=== PATIENT | female | born 1970 | race Caucasian/White ===

== ENCOUNTER → 2021-04-29 | Outpatient (CLI) | payer BC ==
--- NOTE | 2021-04-29 17:16 | US ---
EXAMINATION TYPE: US thyroid st tissue head/neck DATE OF EXAM: 04/29/2021 COMPARISON: NONE CLINICAL HISTORY: 50-year-old female E04.9 goiter. Enlarged neck on physical exam. TECHNIQUE: Multiple sonographic images of the thyroid gland are obtained. FINDINGS: GLAND SIZE: Right Lobe: 3.6 x 1.5 x1.1 cm Overall Parenchyma: homogenous Left Lobe: 3.5 x 1.4 x 1.1 cm Overall Parenchyma: homogeneous Isthmus Thickness: 0.2 cm NODULES RIGHT: # of nodules measured on right: 0 LEFT: # of nodules measured on left: 0 ISTHMUS: # of nodules measured in the isthmus: 1 1. 0.4 X 0.4 x 0.3 cm benign cyst in the left isthmus No mass or fluid collection seen on right side of neck. Lymph node noted on left side of neck measuri ng 1.2 x 0.6 x 0.5 cm. IMPRESSION: 1. Normal-sized thyroid gland. There is only a solitary benign 4 mm cyst within the left isthmus. 2. A prominent but nonenlarged 1.2 x 0.6 cm lymph node along the left side of the neck (6 mm short ax is).
== END | disposition home or self-care (01) ==
LOC: RADUSWWP 15:46
PROVIDERS: ATTEND Family Medicine
DX: E04.1 Nontoxic single thyroid nodule (principal)
CPT/HCPCS: 76536

== ENCOUNTER → 2022-09-10 | Outpatient (CLI) | payer BC ==
--- NOTE | 2022-09-10 15:28 | MM ---
Reason for Exam: Clinical finding. Indicated Problems: Pain of the right side (Focal) for 1 Month(s) : 12-1 oclock. Patient History: Menarche at age 10. First Full-Term at age 18. Hysterectomy at age 27. Postmenopausal. Risk Values: Susan 5 year model risk: 1.0%. NCI Lifetime model risk: 7.7%. Tissue Density: Right: The breast tissue is heterogeneously dense. This may lower the sensitivity of mammography. Findings: Analyzed By CAD. There are a few scattered tiny benign-appearing punctate calcifications in the right breast redemonstrated. Painful area marked in the right breast upper aspect. Possible enlarging oval mass just posterior to this overlying portion of the right pectoralis muscle near MLO slice 56 is present. This is also seen on true lateral image 18. Overall Assessment: Incomplete: need additional imaging evaluation, BI-RAD 0 Management: Diagnostic Breast Ultrasound of the right breast. Targeted ultrasound. Electronically signed and approved by: Meliton Dover DO
--- NOTE | 2022-09-10 15:31 | USB ---
Reason for Exam: Clinical finding. Patient History: Menarche at age 10. First Full-Term at age 18. Hysterectomy at age 27. Postmenopausal. Risk Values: Susan 5 year model risk: 1.0%. NCI Lifetime model risk: 7.7%. Findings: The whole breast of the right breast, the axilla of the right breast and the retroareolar of the right breast were scanned. Targeted ultrasound right breast shows irregular hypoechoic mass that has some angular margins and has not parallel orientation at 12:00 position 10 cm distance from nipple measuring 1.3 x 1.2 x 1.2 cm with some adjacent vascularity and no posterior features. Scan of axilla shows no suspicious adenopathy. Overall Assessment: Suspicious, BI-RAD 4 Management: Ultrasound Core Biopsy of the right breast. Targeted ultrasound core biopsy. Results were given to the patient verbally at the time of exam. Electronically signed and approved by: Meliton Dover DO
== END | disposition home or self-care (01) ==
LOC: RADMAMWWP 13:30
PROVIDERS: ATTEND Family Medicine
DX: N64.4 Mastodynia (principal); R92.2 Inconclusive mammogram; Z78.0 Asymptomatic menopausal state
CPT/HCPCS: 77061; 77065

== ENCOUNTER → 2022-09-29 | Day surgery (SDC) | payer BC | LOC: RADUSWWP 12:48 | PROVIDERS: ATTEND Surgery | DX: C50.911 Malignant neoplasm of unspecified site of right female breast (principal) | CPT/HCPCS: 88305; 88342; 88341; 77065; 19083; 19084; A4648 ==

== ENCOUNTER 2022-12-07 08:24 | Observation (INO) | payer BC ==
[~2022-12-07 08:24] MED LIST: ACETAMINOPHEN TAB 500 MG TAB PO PRN; HEPARIN SODIUM,PORCINE/PF 5,000 UNIT/0.5 ML SYRINGE SQ PRN; Pre Op ABX Message 1 EACH MISC MISCELLANE ONE
--- NOTE | 2022-12-07 08:43 | P.GSHP ---
History of Present Illness H&P Date: 12/07/22 Chief Complaint: Right breast cancer 52-year-old female seen in the office in September. Please refer to that history and physical for additional details. The patient felt a lump upper medial aspect right breast in July. Diagnostic mammogram and ultrasound was then performed. She was found to have a 1.5 cm invasive lobular carcinoma ER/NV positive, HER-2/bita negative. Subsequent MRI showed what appeared to represent multifocal disease. Patient was seen by oncology. Genetic testing was performed given a prominent family history. Past Medical History Past Medical History: Cancer, GERD/Reflux Additional Past Medical History / Comment(s): Current right breast cancer. History of Any Multi-Drug Resistant Organisms: None Reported Past Surgical History: Breast Surgery, Section, Cholecystectomy Additional Past Surgical History / Comment(s): Cyst from thumb and finger removed, section X4, partial hysterectomy, right breast biopsy. Past Anesthesia/Blood Transfusion Reactions: No Reported Reaction Past Psychological History: Depression Smoking Status: Never smoker Past Alcohol Use History: Occasional Past Drug Use History: Marijuana Additional Drug Use History / Comment(s): Marijuana use on occassion, aware no use 24 hrs prior to procedure. - Past Family History Mother Family Medical History: Cancer Additional Family Medical History / Comment(s): Breast and stomach cancer. Medications and Allergies Home Medications Medication Instructions Recorded Confirmed Type Cetirizine HCl/Pseudoephedrine 1 tab PO DAILY 12/02/22 12/02/22 History [Zyrtec-D ER 5 mg-120 mg Tablet] Escitalopram Oxalate [Lexapro] 20 mg PO QAM 12/02/22 12/02/22 History Ibuprofen [Motrin Ib] 400 - 600 mg PO Q8H PRN 12/02/22 12/02/22 History Allergies Allergy/AdvReac Type Severity Reaction Status Date / Time No Known Allergies Allergy Verified 12/02/22 15:24 Surgical - Exam Physical exam: General: Well-developed, well-nourished HEENT: Normocephalic, sclerae nonicteric Right breast: 1.5 cm mass 1 to 2:00, no adenopathy, no dimpling, no nipple inversion Left breast: No masses, no adenopathy Abdomen: Nontender, nondistended Extremities: No edema Neuro: Alert and oriented Assessment and Plan (1) Breast cancer, right Narrative/Plan: 52-year-old female with right breast cancer. MRI performed and is suggesting multifocal disease. Patient is interested in mastectomy with reconstruction. She was seen by plastic surgery. We'll proceed with bilateral skin sparing mastectomy with right axillary sentinel lymph node injection and biopsy. Patient will have reconstruction by plastic surgery simultaneously. Risks of bleeding, infection, scarring, numbness, wound formation, recurrence, possible need for adjuvant radiation or additional surgeries. She understands and wishes to proceed. Current Visit: Yes Status: Acute Code(s): C50.911 - MALIGNANT NEOPLASM OF UNSP SITE OF RIGHT FEMALE BREAST SNOMED Code(s): 001990668
--- NOTE | 2022-12-07 08:44 | P.NAPBC ---
NAPBC Queries - NAPBC Queries Was patient's case review presented at [facility] tumor board? If no, comment.: Yes Was patient's pathology reviewed at [facility]? If no, comment.: Yes Was breast conservation surgery offered? If no, comment.: Yes Was sentinel node biopsy offered? If no, comment.: Yes Was diagnosis confirmed by percutaneous core biopsy? If no, comment.: Yes Is patient mastectomy patient?: Yes Was a preop referral to reconstructive surgeon offered?: Yes Clinical Stage: 1
[2022-12-07] MEDS: LACTATED RINGERS 1,000 ML IV SCH (09:01)
[2022-12-07] MEDS ORDERED: ONDANSETRON 4 MG/2 ML VIAL ONE ×2 (09:05→10:38)
[2022-12-07] MEDS ORDERED: DEXAMETHASONE SOD PHOSPHATE 4 MG/ML 1 ML VIAL IVP ONE (09:12)
[2022-12-07] MEDS ORDERED: MIDAZOLAM 2 MG/2 ML VIAL IVP ONE (10:21)
[2022-12-07] MEDS ORDERED: fentaNYL (PF) 50 MCG/ML 2 ML AMP ONE (10:38)
[2022-12-07] MEDS ORDERED: MIDAZOLAM 2 MG/2 ML VIAL ONE (10:38)
[2022-12-07] MEDS ORDERED: LIDOCAINE 4% LTA KIT (4 ML) TOPICAL ONE (10:38)
[2022-12-07] MEDS ORDERED: SUCCINYLCHOLINE CHLORIDE 200 MG/10 ML VIAL IV ONE (10:38)
[2022-12-07] MEDS ORDERED: PROPOFOL 10 MG/ML 20 ML VIAL IV ONE (10:38)
[2022-12-07] MEDS ORDERED: LIDOCAINE 2% INJ 20 MG/ML (2 ML VIAL) ONE (10:38)
[2022-12-07] MEDS ORDERED: KETAMINE 10 MG/ML 20 ML VIAL ONE (10:38)
[2022-12-07] MEDS ORDERED: METOPROLOL TARTRATE 5 MG/5 ML VIAL IVP ONE (10:38)
[2022-12-07] MEDS ORDERED: ROCURONIUM 10 MG/ML (5 ML VIAL) IV ONE (10:38)
[2022-12-07] MEDS ORDERED: HYDROmorphone (PF) 1 MG/ML ONE (10:38)
[2022-12-07] MEDS ORDERED: SODIUM CHLORIDE 0.9% 50 ML with ceFAZolin 2,000 MG IV ONE ×2 (10:43)
--- NOTE | 2022-12-07 10:47 | NM ---
EXAMINATION TYPE: NM sentinel node injection DATE OF EXAM: 12/07/2022 COMPARISON: NONE CLINICAL INDICATION: Female, 52 years old with history of C50.911 RIGHT BREAST CANCER; TECHNIQUE AND FINDINGS: The procedure of sentinel lymph node injection was explained to the patient. The benefits, alternatives, and risks were discussed. An informed consent was then obtained. Overlying skin is cleaned with sterile alcohol. Following this, 518 uCi Tc99m Tilmanocept was inject ed in the upper outer aspect of the right nipple intradermally. The patient tolerated the procedure well without any immediate complication. The patient was kept in the radiology department for short stay after the procedure and then taken to surgery for surgical p rocedure what is presumed intraoperative gamma probe will be used for sentinel lymph node detection. IMPRESSION: Right breast radiotracer injection for sentinel node localization as above.
[2022-12-07] MEDS ORDERED: ceFAZolin 1,000 MG VIAL ONE (11:05)
[2022-12-07] MEDS ORDERED: SODIUM CHLORIDE 0.9% 100 ML BAG ONE (11:05)
[2022-12-07] MEDS ORDERED: METHYLENE BLUE 50 MG/10 ML AMPUL INJ ONE ×2 (11:21)
[2022-12-07] MEDS ORDERED: LACTATED RINGERS 1,000 ML IV ONE (13:12)
[2022-12-07] MEDS ORDERED: NALOXONE 0.4 MG/ML 1 ML VIAL IV PRN (13:49)
[2022-12-07] MEDS ORDERED: traMADol 50 MG TAB PO PRN (13:49)
[2022-12-07] MEDS ORDERED: ACETAMINOPHEN TAB 325 MG TAB PO PRN (13:49)
[2022-12-07] MEDS ORDERED: ACETAMINOPHEN IV (For NPO) 1,000 MG in EMPTY BAG 1 BAG IVPB ONE (13:49)
--- NOTE | 2022-12-07 13:56 | P.OP ---
Date of Procedure: 12/07/22 Procedure(s) Performed: PREOPERATIVE DIAGNOSIS: Right breast cancer POSTOPERATIVE DIAGNOSIS: Same PROCEDURE: Bilateral simple mastectomy with sentinel lymph node biopsy right breast with concurrent reconstruction SURGEON: Renee EBL: Minimal ANESTHESIA: General COMPLICATIONS: None OPERATIVE PROCEDURE: Patient was placed on the operating room table in the supine position. 2 mL of methylene blue was injected into the right subareolar space. The breast was then massaged for 5 minutes. The upper torso anteriorly was prepped and draped in usual sterile fashion. The left side was first addressed. A skin marker was used to draw out a circular incision around the areola. This incision was then made using the scalpel. Dissection through the subcutaneous tissues took place using electrocautery down to the chest wall circumferentially. The breast was removed from the chest wall at that time. The Ligaclip or LigaSure was used for small visible vessels. No bleeding was encountered. Dr. Mesa from plastic surgery then took over on the left chest wall to begin his reconstruction with tissue expanders. The right side was then addressed. A small curvilinear incision in the right axilla took place over the hot spot identified by neoprobe. The subcutaneous tissues were divided using electrocautery and blunt dissection. A total of 6 hot lymph nodes were identified and removed. 2 of these were blue in color. No residual radioactivity within the axilla was noted at that time. These lymph nodes had a benign appearance clinically. No frozen section took place. In a similar fashion the skin marker was used to draw out the proposed incision around the areola. The incision was made using a scalpel. The skin hooks were utilized and the flaps were raised circumferentially using electrocautery down to the chest wall. The breast was again removed from the chest wall using electrocau palmira. Small vessels were ligated using the clip brine tank separator operator. No bleeding was seen. The right chest wall was then again handed off to Dr. Mesa for formal closure and tissue cigarette making machine hopper feeder placement. At that point I exited the room. The family was informed of the progress of surgery. DISPOSITION: Patient to remain in the operating for completion and closure by Dr. Mesa.
[2022-12-07] MEDS ORDERED: BACITRACIN ZINC 500 UNIT/GM OINT 28.4 GM TUBE TOPICAL ONE (14:30)
[2022-12-07] MEDS ORDERED: HYDROmorphone 0.5 MG/0.5 ML SYRINGE IVP ONE (14:57)
[2022-12-07] MEDS: D5-0.45% NACL WITH KCL 20MEQ/L 1,000 ML IV SCH (16:15)
[2022-12-07] MEDS: HEPARIN SODIUM,PORCINE/PF 5,000 UNIT/0.5 ML SYRINGE SQ SCH (17:43)
[2022-12-07] MEDS: HYDROmorphone 0.5 MG/0.5 ML SYRINGE IVP PRN (19:31)
[2022-12-07] MEDS: DOCUSATE 100 MG CAP PO SCH (20:59)
[2022-12-07] MEDS: FAMOTIDINE 20 MG TAB PO SCH (20:59)
--- NOTE | 2022-12-07 21:27 | OP ---
OPERATIVE REPORT DATE OF SERVICE : 12/07/2022 PREOPERATIVE DIAGNOSES: 1. Acquired loss, right and left breast. 2. Breast cancer, right breast. POSTOPERATIVE DIAGNOSES: 1. Acquired loss, right and left breast. 2. Breast cancer, right breast. OPERATIVE PROCEDURES: 1. Immediate reconstruction, left breast, following mastectomy with insertion of tissue brewery pumper, subsequent outpatient expansion. 2. Immediate reconstruction, right breast, following mastectomy with insertion of tissue brewery pumper, subsequent outpatient expansion. 3. Implantation of reconstructive graft for right and left breast reconstruction. OPERATIVE INDICATIONS: The patient is a 52-year-old female, who is to undergo nipple sparing mastectomies of the right and left breast with right axillary lymph node excision for treatment of breast cancer of the right breast. She has elected to proceed with immediate breast reconstruction via tissue brewery pumper technique, is aware of potential risks and complications associated with the procedure including, but not limited to seroma, hematoma, wound healing problems, infection, among others. She has requested I perform the surgery. OPERATIVE PROCEDURE SUMMARY: The patient was seen in the preoperative area, markings made. Procedure reviewed. All questions answered. She was transported to the operative room, where she was placed in supine position. Following induction of general anesthesia, the patient was prepped and draped in usual fashion. Dr. Duran and his team then proceeded with the left-sided nipple sparing mastectomy through a circumareolar approach. Once that procedure was complete, I entered the room and initiated left breast reconstruction with Dr. Duran. I proceeded with right sentinel lymph node excision and right-sided mastectomy procedures. The mastectomy wound on the left was opened. No active bleeding. The wound was irrigated. Hemostasis was optimal. Additional dissection was required for optimal positioning of the tissue brewery pumper for breast reconstruction and was completed with cautery elevating additional areas of the skin, subcutaneous tissue flaps where necessary. The cavity was sized. Interpreter And Translator now opened on the field. Ultimately, 2 expanders were opened today, both of the same size from the [employer] 133S tissue brewery pumper line. The model number for the device was [id number]-SR-16-T, 600 mL volume. The left-sided device serial number was [id number] and later when opened, the right-sided serial number was [id number]. The device was only handled by surgeon. It was irrigated with saline. All air extracted and initially 400 mL air placed in the device. The device was placed into the left breast reconstructive cavity for test fitting, but the volume was too great. 100 mL of air was ultimately removed and this appeared to be an optimal fit allowing for wound closure with no tension. The device was removed, re- irrigated. AlloDerm Select tissue graft measuring 327 square cm fenestrated was opened onto the field. The AlloDerm Select restore product was irrigated several times with saline, pre-stretched and then used to cover all anterior surfaces of the tissue brewery pumper securing to 6 suture tabs with 2-0 Vicryl sutures. The brewery pumper covered with graft was covered with moist laparotomy pad to protect the graft with moisture and placed in a sterile bowl. The right-sided tissue brewery pumper was opened on the field as the patient's breasts were quite similar in sizes. Again the expanders were only handled by surgeon. All air extracted and 300 mL of air instilled. A second piece of AlloDerm Select restore measuring 327 square cm was opened on the field, rinsed several times with saline and then secured to the right-sided tissue brewery pumper with 2-0 Vicryl using 6 suture tab locations. Again, the graft covered expanders covered with a saline moistened laparotomy tab and placed in the sterile bowl. To distinguish the 2 expanders, the right-sided device was inked with a purple bar from the marking pen. Once the right-sided mastectomy and sentinel lymph node procedures completed, the cavity was irrigated. Hemostasis was optimal. Additional dissection was performed as was done on the left with cautery, elevated skin and subcutaneous tissue to create optimal positioning for the brewery pumper. The cavities were symmetrical. They were both irrigated. Hemostasis optimal. The tissue graft, tissue expanders were now placed in a prepectoral position and once operating position secured to the chest wall using 2-0 Vicryl suture and the 6 suture tab locations. With this complete, 19 round Nadeem channel drains were opened on the field and inserted into the reconstructive cavity on the right and left side, brought through separate stab incisions in the right anterior lateral chest wall. The drains were sutured in place with 2-0 Prolene. The incisions were now closed in circles using a deep dermal 2-0 Prolene pursestring suture followed by finer approximation of the dermis were possible using inverted interrupted 4-0 Monocryl and then completing superficial dermal epidermal closure with sergio. This was completed on each side in this fashion. Drains connected to the suction bulbs and were patent. Surgical edmond cleansed with saline and dried. Postoperative bandages placed using bacitracin ointment, Kerlix squares, drain sponges, all secured with 3M Medipore tape. The patient's right axillary incision was covered with Kerlix squares secured with Medipore tape as well. The patient was then awakened from her anesthetic, extubated, and transferred to the recovery room in good condition with stable vital signs. Estimated blood loss for this portion of the procedure was 50 mL. There were no complications. MMODL / IJN: [id number] /
[2022-12-07] MEDS: ONDANSETRON 4 MG/2 ML VIAL IVP PRN (21:41)
[2022-12-08] MEDS: HYDROmorphone 0.5 MG/0.5 ML SYRINGE IVP PRN ×2 (00:47→04:53)
[2022-12-08] MEDS: HEPARIN SODIUM,PORCINE/PF 5,000 UNIT/0.5 ML SYRINGE SQ SCH ×3 (02:21→18:09)
[2022-12-08] MEDS: D5-0.45% NACL WITH KCL 20MEQ/L 1,000 ML IV SCH ×2 (03:45→18:09)
[2022-12-08] MEDS: LACTATED RINGERS 1,000 ML IV SCH (06:16)
[2022-12-08] MEDS: DOCUSATE 100 MG CAP PO SCH ×2 (08:53→19:49)
[2022-12-08] MEDS: FAMOTIDINE 20 MG TAB PO SCH ×2 (08:53→19:49)
[2022-12-08] MEDS: HYDROmorphone 1 MG/ML 1 ML SYRINGE IVP PRN (08:53)
--- NOTE | 2022-12-08 10:44 | P.CONS ---
History of Present Illness - Reason for Consult Postoperative complication management - History of Present Illness Patient is a pleasant 53-year-old female admitted for bilateral simple mastectomy with some central or in for right breast cancer. Patient underwent this surgery followed by reconstructive surgery. Patient is clinically doing well patient is having some pain in the breast area surgical site areas pain is well-controlled on present medication regimen. Patient was complaining of some lightheadedness posterior opiate use for pain. REVIEW OF SYSTEMS: CONSTITUTIONAL: No fever, no malaise, no fatigue. HEENT: No recent visual problems or hearing problems. Denied any sore throat. CARDIOVASCULAR: No chest pain, orthopnea, PND, no palpitations, no syncope. PULMONARY: No shortness of breath, no cough, no hemoptysis. GASTROINTESTINAL: No diarrhea, no nausea, no vomiting, no abdominal pain. NEUROLOGICAL: No headaches, no weakness, no numbness. HEMATOLOGICAL: Denies any bleeding or petechiae. GENITOURINARY: Denies any burning micturition, frequency, or urgency. MUSCULOSKELETAL/RHEUMATOLOGICAL: Denies any joint pain, swelling, or any muscle pain. ENDOCRINE: Denies any polyuria or polydipsia. The rest of the 14-point review of systems is negative. PHYSICAL EXAMINATION: GENERAL: The patient is alert and oriented x3, not in any acute distress. Well developed, well nourished. HEENT: Pupils are round and equally reacting to light. EOMI. No scleral icterus. No conjunctival pallor. Normocephalic, atraumatic. No pharyngeal erythema. No thyromegaly. CARDIOVASCULAR: S1 and S2 present. No murmurs, rubs, or gallops. PULMONARY: Chest is clear to auscultation, no wheezing or crackles. ABDOMEN: Soft, nontender, nondistended, normoactive bowel sounds. No palpable organomegaly. MUSCULOSKELETAL: No joint swelling or deformity. EXTREMITIES: No cyanosis, clubbing, or pedal edema. NEUROLOGICAL: Gross neurological examination did not reveal any focal deficits. SKIN: No rashes. Assessment and plan -Bilateral mastectomy with reconstructive surgery patient pain is fairly well controlled continue with present regimen will also start her on some Toradol for pain. -Right breast cancer status post mastectomy with lymph node biopsy -Depression patient will be resumed on SSRI -Gastric esophageal reflux disease: Pepcid DVT prophylaxis: As per primary service Past Medical History Past Medical History: Cancer, GERD/Reflux Additional Past Medical History / Comment(s): Current right breast cancer. History of Any Multi-Drug Resistant Organisms: None Reported Past Surgical History: Breast Surgery, Section, Cholecystectomy Additional Past Surgical History / Comment(s): Cyst from thumb and finger removed, section X4, partial hysterectomy, right breast biopsy. Past Anesthesia/Blood Transfusion Reactions: No Reported Reaction Past Psychological History: Depression Smoking Status: Never smoker Past Alcohol Use History: Occasional Past Drug Use History: Marijuana Additional Drug Use History / Comment(s): Marijuana use on occassion, aware no use 24 hrs prior to procedure. - Past Family History Mother Family Medical History: Cancer Additional Family Medical History / Comment(s): Breast and stomach cancer. Medications and Allergies Home Medications Medication Instructions Recorded Confirmed Type Cetirizine HCl/Pseudoephedrine 1 tab PO DAILY 12/02/22 12/07/22 History [Zyrtec-D ER 5 mg-120 mg Tablet] Escitalopram Oxalate [Lexapro] 20 mg PO QAM 12/02/22 12/07/22 History Ibuprofen [Motrin Ib] 400 - 600 mg PO Q8H PRN 12/02/22 12/07/22 History Allergies Allergy/AdvReac Type Severity Reaction Status Date / Time No Known Allergies Allergy Verified 12/07/22 08:49 Physical Exam Vitals: Vital Signs Temp Pulse Resp BP Pulse Ox 12/08/22 08:00 97.9 F 68 18 149/72 97 12/08/22 02:46 98.4 F 58 L 16 145/77 95 12/07/22 21:23 97.7 F 54 L 16 145/82 93 L 12/07/22 20:03 97.1 F L 55 L 16 148/84 99 12/07/22 16:15 58 L 18 12/07/22 15:45 97.6 F 61 18 177/83 98 12/07/22 15:15 65 17 1456/80 95 12/07/22 15:00 74 15 150/83 97 12/07/22 14:45 80 16 172/97 97 12/07/22 14:30 79 17 179/85 100 12/07/22 14:15 97.5 F L 77 18 168/82 99 Intake and Output 12/07/22 12/08/22 12/08/22 22:59 06:59 14:59 Intake Total 535 1850 Output Total 130 70 Balance 405 1780 Intake: IV 175 900 ACETAMINOPHEN IV (For NPO 100 ) 1,000 mg In Empty Bag 1 bag @ 400 mls/hr IVPB ONCE ONE Rx#:[id number] D5-0.45% NaCl with KCl 75 900 20Meq/l 1,000 ml @ 75 mls /hr IV .[id number] ROS Rx#: [id number] Oral 360 950 Output: Drainage 130 70 Left Breast 65 30 Right Breast 65 40 Other: Voiding Method Toilet # Voids 1 Weight 69.2 kg
[2022-12-08] MEDS: ESCITALOPRAM 20 MG TAB PO SCH (11:00)
[2022-12-08] MEDS: HYDROcodone/APAP 5-325MG 1 EACH TAB PO PRN ×3 (11:02→21:03)
--- NOTE | 2022-12-08 11:47 | P.PN ---
Subjective Progress Note Date: 12/08/22 CHIEF COMPLAINT: Right breast cancer HISTORY OF PRESENT ILLNESS: Patient is postop day #1 status post Bilateral simple mastectomy with sentinel lymph node biopsy right breast with concurrent reconstruction. Patient does complain of pain. She did require Dilaudid this morning. She has been dealing with nausea. She denies any vomiting. She has been having dizziness when ambulating. Afebrile. LEA drain for left breast 30ml sanguinous output and right breast 40 mL sanguinous output PHYSICAL EXAM: VITAL SIGNS: Reviewed. GENERAL: Well-developed in no acute distress. Breast exam: Dressing is clean dry and intact. Dressing removed both breasts no significant hematoma. No significant drainage. There is mild dried blood noted at the nipples. No evidence of erythema. ABDOMEN: Soft. Nondistended. Nontender. NEUROLOGIC: Alert and oriented. Cranial nerves II through XII grossly intact. ASSESSMENT: 1. Right breast cancer status post bilateral simple mastectomy with sentinel lymph node biopsy right breast with concurrent reconstruction PLAN: -Continue pain management -Continue regular diet -Continue IV fluids -Continue supportive care Physician Surgical Processor note has been reviewed by physician. Signing provider agrees with the documented findings, assessment, and plan of care. I have personally seen and examined the patient, reviewed the MUMPS DEVELOPER /PAs history, exam and MDM and agree with the assessment and plan as written. Based on total visit time, I have performed more than 50% of the visit. As above: Patient doing well today. Minimal pain. Drain output appropriate. Incisions clean and dry. No ischemia. Continue analgesics. Anticipate discharge tomorrow. Objective - Vital Signs Vital signs: Vital Signs Temp 97.9 F 12/08/22 08:00 Pulse 68 12/08/22 08:00 Resp 18 12/08/22 08:00 BP 149/72 12/08/22 08:00 Pulse Ox 97 12/08/22 08:00 FiO2 Intake & Output 12/07/22 12/08/22 12/08/22 18:59 06:59 18:59 Intake Total 1425 2210 Output Total 365 150 Balance 1060 2060 Weight 69.2 kg Intake: IV 1425 900 ACETAMINOPHEN IV (For NPO 100 ) 1,000 mg In Empty Bag 1 bag @ 400 mls/hr IVPB ONCE ONE Rx#:[id number] D5-0.45% NaCl with KCl 75 900 20Meq/l 1,000 ml @ 75 mls /hr IV .[id number] [facility] Rx#: [id number] Oral 1310 Output: Drainage 50 150 Left Breast 30 65 Right Breast 20 85 Urine 150 Estimated Blood Loss 165 Other: Voiding Method Toilet Toilet # Voids 1 - Labs CBC & Chem 7: 12/08/22 12:03
[2022-12-08] MEDS: ONDANSETRON 4 MG/2 ML VIAL IVP PRN ×2 (12:03→19:48)
[2022-12-08 13:12] LABS: HGB 12.7 gm/dL (11.4-16.0); MCH 29.8 pg (25.0-35.0); MCHC 33.5 g/dL (31.0-37.0); MCV 88.9 fL (80.0-100.0); Mean Platelet Volume 9.1; Platelet Count 214 k/uL (150-450); RBC 4.28 m/uL (3.80-5.40); RDW 12.9 % (11.5-15.5); WBC 13.4 k/uL (3.8-10.6)
[2022-12-08] MEDS ORDERED: BACITRACIN OINT 1 EACH PACKET TOPICAL ONE (13:15)
[2022-12-08] MEDS ORDERED: FAMOTIDINE 20 MG TAB PO SCH (21:00)
[2022-12-09] MEDS: HYDROcodone/APAP 5-325MG 1 EACH TAB PO PRN ×4 (01:42→21:34)
[2022-12-09] MEDS: HEPARIN SODIUM,PORCINE/PF 5,000 UNIT/0.5 ML SYRINGE SQ SCH ×3 (01:45→17:55)
[2022-12-09] MEDS: LACTATED RINGERS 1,000 ML IV SCH (03:32)
[2022-12-09] MEDS: ONDANSETRON 4 MG/2 ML VIAL IVP PRN ×2 (06:20→21:38)
[2022-12-09] MEDS: D5-0.45% NACL WITH KCL 20MEQ/L 1,000 ML IV SCH ×3 (06:20→22:15)
[2022-12-09] MEDS: METOCLOPRAMIDE 5 MG/ML 2 ML VIAL IVP PRN (10:10)
[2022-12-09] MEDS: FAMOTIDINE 20 MG TAB PO SCH ×2 (10:11→20:48)
[2022-12-09] MEDS: ESCITALOPRAM 20 MG TAB PO SCH (10:11)
[2022-12-09] MEDS: DOCUSATE 100 MG CAP PO SCH ×2 (10:11→20:48)
[2022-12-09 10:28] LABS: Basophils % (A) 0 %; Eosinophils # (A) 0.3 k/uL (0-0.7); Eosinophils % (A) 3 %; Lymphocytes % (A) 33 %; MCH 31.1 pg (25.0-35.0); MCV 88.9 fL (80.0-100.0); Mean Platelet Volume 8.8; Monocytes # (A) 0.3 k/uL (0-1.0); Monocytes % (A) 3 %; Neutrophils # (A) 5.3 k/uL (1.3-7.7); Neutrophils % (A) 60 %; Platelet Count 205 k/uL (150-450); RBC 4.17 m/uL (3.80-5.40); RDW 12.5 % (11.5-15.5)
--- NOTE | 2022-12-09 13:03 | P.PN ---
Subjective Progress Note Date: 12/09/22 CHIEF COMPLAINT: Right breast cancer HISTORY OF PRESENT ILLNESS: Patient is postop day #2 status post Bilateral simple mastectomy with sentinel lymph node biopsy right breast with concurrent reconstruction. Patient reports that she is feeling better but still complains of pain and has required IV pain medicine. Her dizziness has improved. She still occasionally having nausea. Afebrile. LEA drains with total of 20 mL sanguinous output. PHYSICAL EXAM: VITAL SIGNS: Reviewed. GENERAL: Well-developed in no acute distress. Breast exam: Dressing is clean dry and intact. No evidence of any hematomas. Right breast 7 o'clock position skin is slightly small darkened area at incision site at nipple area . Mild dried blood noted at incision area. Left breast small dried blood clot noted at nipple area. ABDOMEN: Soft. Nondistended. Nontender. NEUROLOGIC: Alert and oriented. Cranial nerves II through XII grossly intact. ASSESSMENT: 1. Right breast cancer status post bilateral simple mastectomy with sentinel lymph node biopsy right breast with concurrent reconstruction PLAN: -Continue pain management -Add [place] -Continue regular diet -Continue supportive care -Anticipate discharge possibly tomorrow Physician Green Marketing Specialist note has been reviewed by physician. Signing provider agrees with the documented findings, assessment, and plan of care. Objective - Vital Signs Vital signs: Vital Signs Temp 98.5 F 12/09/22 07:37 Pulse 65 12/09/22 07:37 Resp 18 12/09/22 07:37 BP 143/68 12/09/22 07:37 Pulse Ox 97 12/09/22 07:37 FiO2 Intake & Output 12/08/22 12/09/22 12/09/22 18:59 06:59 18:59 Intake Total 900 950 Output Total 140 20 Balance 760 930 Intake: IV 900 D5-0.45% NaCl with KCl 900 20Meq/l 1,000 ml @ 75 mls /hr IV .[id number] ROS Rx#: [id number] Oral 950 Output: Drainage 140 20 Left Breast 65 10 Right Breast 75 10 Other: # Voids 1 - Labs CBC & Chem 7: 12/09/22 10:13 Labs: Abnormal Lab Results - Last 24 Hours (Table) 12/08/22 Range/Units 12:03 WBC 13.4 H (3.8-10.6) k/uL
[2022-12-09] MEDS: IBUPROFEN 600 MG TAB PO SCH ×3 (13:57→21:35)
--- NOTE | 2022-12-09 18:41 | P.PN ---
Subjective Progress Note Date: 12/09/22 - Reason for Consult Postoperative management status post bilateral simple mastectomy - History of Present Illness Patient is a pleasant 53-year-old female admitted for bilateral simple mastectomy with some central or in for right breast cancer. Patient underwent this surgery followed by reconstructive surgery. Patient is clinically doing well patient is having some pain in the breast area surgical site areas pain is well-controlled on present medication regimen. Patient was complaining of some lightheadedness posterior opiate use for pain. 12/09/2022 Patient is seen and evaluated in follow-up today with no acute overnight issues noted. Patient continues to have some chest wall discomfort requiring IV pain medications. Recommend incentive spirometer and encourage the patient use at least 10 times every hour while awake. Pain management per surgery services. Patient is afebrile and did have a mildly elevated white count, most likely reactive as patient is afebrile and denies shortness of breath and is currently on room air. Patient denies any burning or pain with urination or frequency. Encouraged increase activity as tolerated and getting up and walking frequently and encouraged oral intake. A.m. labs pending at this time Review of systems: Constitutional: No reports of fatigue, fever, or chills Cardiovascular: reports of chest wall pain , denies palpitations Respiratory: No reports of shortness of breath or cough GI: reports of occasional nausea, no vomiting, or diarrhea, not much of an appetite : No reports of dysuria or retention Neurovascular: No reports of weakness or numbness All medications have been reviewed PHYSICAL EXAMINATION: GENERAL: The patient is alert and oriented x3, not in any acute distress. Well developed, well nourished. HEENT: Pupils are round and equally reacting to light. EOMI. No scleral icterus. No conjunctival pallor. Normocephalic, atraumatic. No pharyngeal erythema. No thyromegaly. CARDIOVASCULAR: S1 and S2 present. No murmurs, rubs, or gallops. PULMONARY: Chest is clear to auscultation, no wheezing or crackles. ABDOMEN: Soft, nontender, nondistended, normoactive bowel sounds. No palpable organomegaly. MUSCULOSKELETAL: No joint swelling or deformity. EXTREMITIES: No cyanosis, clubbing, or pedal edema. NEUROLOGICAL: Gross neurological examination did not reveal any focal deficits. SKIN: No rashes. Assessment: -Bilateral mastectomy with reconstructive surgery, postop day 2 -Right breast cancer status post mastectomy with lymph node biopsy -Leukocytosis, most likely reactive with no signs of infection and patient is afebrile -Depression history -Gastric esophageal reflux disease -DVT prophylaxis: As per primary service -GI prophylaxis -Full code Plan: Recommend continue current medications and management per general surgery services. Home medications have been reviewed and resumed as appropriate Patient continues with some chest wall pain requiring IV pain medications. Gay being added and recommend incentive spirometer and encourage the patient use at least 10 times every hour while awake Encouraged increased activity as tolerated with frequent walks and also encourage oral intake White blood count slightly elevated although feels is likely reactive as patient is afebrile with no reports of burning or pain or frequency with urination and denies shortness of breath. Will await repeat labs We will continue to follow with general surgery during hospitalization. Thank you kindly for this consultation. The impression and plan of care has been dictated by Sola Krishnamurthy, Nurse Practitioner as directed. Dr. Roxie MD I have performed a history and examination and MDM of this patient, discussed the same with the dictator, and agree with the dictator's assessment and plan as written ,documented as a scribe. Based on total visit time, I have performed more than 50% of the visit. Objective - Vital Signs Vital signs: Vital Signs Temp 98.5 F 12/09/22 07:37 Pulse 65 12/09/22 07:37 Resp 18 12/09/22 07:37 BP 143/68 12/09/22 07:37 Pulse Ox 97 12/09/22 07:37 FiO2 Intake & Output 12/08/22 12/09/22 12/09/22 18:59 06:59 18:59 Intake Total 900 950 Output Total 140 20 Balance 760 930 Intake: IV 900 D5-0.45% NaCl with KCl 900 20Meq/l 1,000 ml @ 75 mls /hr IV .[id number] ROS Rx#: [id number] Oral 950 Output: Drainage 140 20 Left Breast 65 10 Right Breast 75 10 Other: # Voids 1 - Labs CBC & Chem 7: 12/09/22 10:13 Labs: Abnormal Lab Results - Last 24 Hours (Table) 12/08/22 Range/Units 12:03 WBC 13.4 H (3.8-10.6) k/uL
[2022-12-10] MEDS: HEPARIN SODIUM,PORCINE/PF 5,000 UNIT/0.5 ML SYRINGE SQ SCH ×2 (03:51→09:34)
[2022-12-10] MEDS: ONDANSETRON 4 MG/2 ML VIAL IVP PRN ×2 (05:10→13:23)
[2022-12-10] MEDS: HYDROmorphone 1 MG/ML 1 ML SYRINGE IVP PRN (05:13)
[2022-12-10] MEDS: FAMOTIDINE 20 MG TAB PO SCH (08:17)
[2022-12-10] MEDS: DOCUSATE 100 MG CAP PO SCH (08:17)
[2022-12-10] MEDS: HYDROcodone/APAP 5-325MG 1 EACH TAB PO PRN ×2 (08:17→13:22)
[2022-12-10] MEDS: IBUPROFEN 600 MG TAB PO SCH ×2 (08:17→12:36)
[2022-12-10] MEDS: ESCITALOPRAM 20 MG TAB PO SCH (08:18)
[2022-12-10] MEDS: METOCLOPRAMIDE 5 MG/ML 2 ML VIAL IVP PRN (08:18)
[2022-12-10] MEDS: LACTATED RINGERS 1,000 ML IV SCH (08:27)
--- NOTE | 2022-12-10 12:21 | P.PN ---
Subjective Progress Note Date: 12/10/22 CHIEF COMPLAINT: Right breast cancer HISTORY OF PRESENT ILLNESS: Patient is postop day #3 status post Bilateral simple mastectomy with sentinel lymph node biopsy right breast with concurrent reconstruction. Patient complains of pain across the right upper breast this morning. She did require the IV Dilaudid. She also reports she's been having episodes of nausea requiring antinausea medication. No vomiting. She is able to tolerate diet but her appetite has diminished. Afebrile. LEA drains with s erosanguineous output. 50 mL output on the left drain and 30 mL output on the right PHYSICAL EXAM: VITAL SIGNS: Reviewed. GENERAL: Well-developed in no acute distress. Breast exam: Dressing is clean dry and intact. Right breast firmness at the top of the breast noted with tenderness. No discoloration. Area of the nipple incision with evidence of bruising and a small blood clot. Left breast soft small blood clot noted at nipple incision site. ABDOMEN: Soft. Nondistended. Nontender. NEUROLOGIC: Alert and oriented. Cranial nerves II through XII grossly intact. ASSESSMENT: 1. Right breast cancer status post bilateral simple mastectomy with sentinel lymph node biopsy right breast with concurrent reconstruction PLAN: -Continue pain management -Continue regular diet -Continue supportive care Physician Service Consultant note has been reviewed by physician. Signing provider agrees with the documented findings, assessment, and plan of care. I have personally seen and examined the patient, reviewed the FORMS DESIGNER /PAs history, exam and MDM and agree with the assessment and plan as written. Based on total visit time, I have performed more than 50% of the visit. As above: Patient doing well. She had a sharp pain that was short lasting earlier today. Doing better now. Tolerating diet. We'll discharge. Follow-up one week. Objective - Vital Signs Vital signs: Vital Signs Temp 98.6 F 12/10/22 07:12 Pulse 55 L 12/10/22 07:12 Resp 14 12/10/22 07:12 BP 136/69 12/10/22 07:12 Pulse Ox 99 12/10/22 07:12 FiO2 Intake & Output 12/09/22 12/10/22 12/10/22 18:59 06:59 18:59 Intake Total 900 350 Output Total 113 80 Balance 787 270 Intake: IV 900 D5-0.45% NaCl with KCl 900 20Meq/l 1,000 ml @ 75 mls /hr IV .[id number] [facility] Rx#: [id number] Oral 350 Output: Drainage 113 80 Left Breast 68 50 Right Breast 45 30 Other: Voiding Method Toilet Toilet # Voids 1 - Labs CBC & Chem 7: 12/09/22 10:13
[2022-12-10 13:09] VITALS: BP 166/84; PULSE 62; RESP 13; TEMP 98.7
--- NOTE | 2022-12-10 13:49 | P.DS ---
Providers Date of admission: 12/08/22 08:58 Expected date of discharge: 12/10/22 Attending physician: Lucho Duran Consults: 12/07/22 13:49 Consult Physician Routine Consulting Provider: Ld Ceballos Consult Reason/Comments: Medical management Do you want consulting provider notified?: Yes Primary care physician: Agnieszka Centeno Hospital Course: Discharge diagnosis 1. Right breast cancer status post bilateral simple mastectomy with sentinel lymph node biopsy right breast with concurrent reconstruction Hospital course This is a 52-year-old female with right breast cancer she is status post bilateral simple mastectomy with sentinel lymph node biopsy right breast with concurrent reconstruction. The reconstructive surgery on the right and left breast were completed by Dr. Mesa. Patient has tolerated surgery well. Her pain is controlled. She has been up and ambulating. She is tolerating diet. She is afebrile. She is stable for discharge. Please refer to chart for any further details. Physician Field Support Specialist note has been reviewed by physician. Signing provider agrees with the documented findings, assessment, and plan of care. Patient Condition at Discharge: Stable Plan - Discharge Summary Discharge Rx Participant: Yes New Discharge Prescriptions: New Ibuprofen [Motrin] 600 mg PO Q8HR PRN #30 tab PRN Reason: Pain HYDROcodone/APAP 5-325MG [[place] 5-325] 1 - 2 tab PO Q6HR PRN 3 Days #25 tab PRN Reason: Pain Ondansetron Odt [Zofran Odt] 4 mg PO Q8HR PRN #21 tab PRN Reason: Nausea Continue Escitalopram Oxalate [Lexapro] 20 mg PO QAM Cetirizine HCl/Pseudoephedrine [Zyrtec-D ER 5 mg-120 mg Tablet] 1 tab PO DAILY Discontinued Ibuprofen [Motrin Ib] 400 - 600 mg PO Q8H PRN PRN Reason: Pain Discharge Medication List Cetirizine HCl/Pseudoephedrine [Zyrtec-D ER 5 mg-120 mg Tablet] 1 tab PO DAILY 12/02/22 [History] Escitalopram Oxalate [Lexapro] 20 mg PO QAM 12/02/22 [History] HYDROcodone/APAP 5-325MG [[place] 5-325] 1 - 2 tab PO Q6HR PRN 3 Days #25 tab 12/10/22 [Rx] Ibuprofen [Motrin] 600 mg PO Q8HR PRN #30 tab 12/10/22 [Rx] Ondansetron Odt [Zofran Odt] 4 mg PO Q8HR PRN #21 tab 12/10/22 [Rx] Follow up Appointment(s)/Referral(s): Agnieszka Centeno DO [Primary Care Provider] - 1-2 Days (MAKE AN APPOINTMENT KRISSY AFTER D/C) [facility], [NON-STAFF] - 1 Week Patient Instructions/Handouts: Mastectomy (DC) Activity/Diet/Wound Care/Special Instructions: Dressing change: small gauze pad with Bacitracin to nipples. 4 x 4 on top. Use minimal tape, or tuck into amy top. Nothing tight on breasts. Keep a log of LEA drain output and bring with you to your follow-up appointment Milk/strip drains 2-3 times a day No driving while taking [place] No lifting over 10 pounds No showering until seen by Dr. Mesa. Sponge baths only. No soaking or tub baths for 2 weeks Very light activity until you are reevaluated at your follow up appointment with your surgeon Discharge Disposition: HOME SELF-CARE Plan of Treatment: Dressing change: small gauze pad with Bacitracin to nipples. 4 x 4 on top. Use minimal tape, or tuck into amy top. Nothing tight on breasts.
[2022-12-10] MEDS: D5-0.45% NACL WITH KCL 20MEQ/L 1,000 ML IV SCH (16:30)
--- NOTE | 2022-12-11 04:06 | P.PN ---
Subjective Progress Note Date: 12/10/22 - Reason for Consult Postoperative management status post bilateral simple mastectomy - History of Present Illness Patient is a pleasant 53-year-old female admitted for bilateral simple mastectomy with some central or in for right breast cancer. Patient underwent this surgery followed by reconstructive surgery. Patient is clinically doing well patient is having some pain in the breast area surgical site areas pain is well-controlled on present medication regimen. Patient was complaining of some lightheadedness posterior opiate use for pain. 12/09/2022 Patient is seen and evaluated in follow-up today with no acute overnight issues noted. Patient continues to have some chest wall discomfort requiring IV pain medications. Recommend incentive spirometer and encourage the patient use at least 10 times every hour while awake. Pain management per surgery services. Patient is afebrile and did have a mildly elevated white count, most likely reactive as patient is afebrile and denies shortness of breath and is currently on room air. Patient denies any burning or pain with urination or frequency. Encouraged increase activity as tolerated and getting up and walking frequently and encouraged oral intake. A.m. labs pending at this time 12/10/2022 Patient is seen this morning reports she required some IV pain medication this morning to see significant pain of the right breast area. Patient reports was able to tolerate more oral intake today and nausea is less frequent although persists at times. Patient is afebrile and white count has improved. Encouraged increase activity as tolerated and frequent walking and patient repo rts has been up and points to ambulate more today. Reports of chest pain or palpitations patient denies shortness of breath. Review of systems: Constitutional: No reports of fatigue, fever, or chills Cardiovascular: reports of chest wall pain , denies palpitations Respiratory: No reports of shortness of breath or cough GI: reports of occasional nausea, no vomiting, or diarrhea : No reports of dysuria or retention Neurovascular: No reports of weakness or numbness All medications have been reviewed PHYSICAL EXAMINATION: GENERAL: The patient is alert and oriented x3, not in any acute distress. Well developed, well nourished. HEENT: Pupils are round and equally reacting to light. EOMI. No scleral icterus. No conjunctival pallor. Normocephalic, atraumatic. No pharyngeal erythema. No thyromegaly. CARDIOVASCULAR: S1 and S2 present. No murmurs, rubs, or gallops. PULMONARY: Chest is clear to auscultation, no wheezing or crackles. ABDOMEN: Soft, nontender, nondistended, normoactive bowel sounds. No palpable organomegaly. MUSCULOSKELETAL: No joint swelling or deformity. EXTREMITIES: No cyanosis, clubbing, or pedal edema. NEUROLOGICAL: Gross neurological examination did not reveal any focal deficits. SKIN: No rashes. Assessment: -Bilateral mastectomy with reconstructive surgery, postop day 3 -Right breast cancer status post mastectomy with lymph node biopsy -Leukocytosis, most likely reactive with no signs of infection and patient is afebrile, improved -Depression history -Gastric esophageal reflux disease -DVT prophylaxis: As per primary service -GI prophylaxis -Full code Plan: Recommend continue current medications and management per general surgery services. Home medications have been reviewed and resumed as appropriate Patient continues with some chest wall pain requiring IV pain medications. recommend continuing with incentive spirometer and encourage the patient use at least 10 times every hour while awake Encouraged increased activity as tolerated with frequent walks and also encourage oral intake. Patient reports was able to eat breakfast and tolerate White blood count is normal and patient remains afebrile Plan is for possible discharge later today. Patient is medically stable and encourage patient to bring incentive spirometer home and continue to use We will continue to follow with general surgery during hospitalization. Thank you kindly for this consultation. The impression and plan of care has been dictated by Sola Krishnamurthy, Nurse Practitioner as directed. Dr. Roxie MD I have performed a history and examination and MDM of this patient, discussed the same with the dictator, and agree with the dictator's assessment and plan as written ,documented as a scribe. Based on total visit time, I have performed more than 50% of the visit. Objective - Vital Signs Vital signs: Vital Signs Temp 98.6 F 12/10/22 07:12 Pulse 55 L 12/10/22 07:12 Resp 14 12/10/22 07:12 BP 136/69 12/10/22 07:12 Pulse Ox 99 12/10/22 07:12 FiO2 Intake & Output 12/09/22 12/10/22 12/10/22 18:59 06:59 18:59 Intake Total 900 350 Output Total 113 80 Balance 787 270 Intake: IV 900 D5-0.45% NaCl with KCl 900 20Meq/l 1,000 ml @ 75 mls /hr IV .[id number] [facility] Rx#: [id number] Oral 350 Output: Drainage 113 80 Left Breast 68 50 Right Breast 45 30 Other: Voiding Method Toilet Toilet # Voids 1 - Labs CBC & Chem 7: 12/09/22 10:13
== END 2022-12-10 16:55 | disposition home health service (06) ==
LOC: OR 08:24 → 5NMEDONC 15:10 → OR 12-08 08:58 → 5NMEDONC 12-08 08:58
PROVIDERS: ADMIT Surgery; ATTEND Surgery
DX: C50.911 Malignant neoplasm of unspecified site of right female breast (principal); C50.912 Malignant neoplasm of unspecified site of left female breast; K21.9 Gastro-esophageal reflux disease without esophagitis; D72.829 Elevated white blood cell count, unspecified; F32.A Depression, unspecified; F12.90 Cannabis use, unspecified, uncomplicated; Z17.0 Estrogen receptor positive status [ER+]; Z80.3 Family history of malignant neoplasm of breast; Z90.49 Acquired absence of other specified parts of digestive tract; Z90.711 Acquired absence of uterus with remaining cervical stump; Z80.0 Family history of malignant neoplasm of digestive organs
CPT/HCPCS: 96376 ×3; 96361 ×3; 96372 ×3; 96374; 96375; 97110; 97162; 85025; 85027; 88342; 88307; 88309; 88341; 38792; 19303; 19340; 19101; G0378 ×3; C1889; A9520; J2250; J0330; J1100; J2765 ×2; J2405 ×4; J0690; J3010; J1170 ×5; J0131; J2704; Q9968; J1644 ×4; J2001

== ENCOUNTER → 2023-02-03 | Outpatient (CLI) | payer BC ==
[2023-02-03 10:52] LABS: African American GFR (CKD) >90 (>60 ml/min/1.73 sqM); Blood Urea Nitrogen 8 mg/dL (7-17); Non-African American GFR(CKD) >90 (>60 ml/min/1.73 sqM)
--- NOTE | 2023-02-03 14:18 | NM ---
EXAMINATION TYPE: NM bone scan whole body DATE OF EXAM: 02/03/2023 COMPARISON: NONE CLINICAL INDICATION: Female, 52 years old with history of C50.211 BREAST CANCER; Delayed whole-body scanning was performed following the injection of 23.5 mCi Tc 99m MDP. Images acq uired 3 hours post injection. FINDINGS: There is homogeneous distribution of radiotracer throughout the axial and appendicular skeleton witho ut evidence for metastatic disease at this time. There is mild degenerative uptake about the shoulder s, sternoclavicular joints, bilateral knees as well as the ankles and mid feet. IMPRESSION: No scintigraphic evidence to suggest metastatic disease to the osseous structures at this time.
--- NOTE | 2023-02-03 16:50 | CT ---
EXAMINATION TYPE: CT ChestAbdPelvis w con DATE OF EXAM: 02/03/2023 COMPARISON: None HISTORY: 52-year-old female Z03.89, Breast ca, observe for mets TECHNIQUE: Contiguous axial scanning of the chest, abdomen, and pelvis performed with IV Contrast, pa tient injected with 100 mL of Isovue 300. Delayed images through the kidneys were obtained. Coronal/s agittal reconstructions performed. CT DLP: 785 mGycm Automated exposure control for dose reduction was used. FINDINGS: CHEST: Bilateral tissue expanders are present. An area of fluid above the left sided tissue mine car dispatcher measuri ng 4.9 x 2.7 x 1.6 cm could represent some of the tissue mine car dispatcher or an adjacent seroma. No significa nt surrounding inflammatory changes. The heart is normal size of a pericardial effusion. Aorta normal caliber with variant direct takeoff of the left vertebral artery directly from the aorti c arch. No thoracic lymphadenopathy by CT size criteria. Some minimal stranding atelectasis medial right middle lobe. No consolidation or pleural effusion. ABDOMEN: No focal liver lesion or biliary ductal dilatation. Portal venous system is patent. Cholecystectomy c lips. Adrenal glands, spleen, and pancreas within normal limits. No dilated small bowel, free fluid, or free air. No mesenteric or retroperitoneal lymphadenopathy. A few scattered prominent but nonenlarged mesenteric nodes are demonstrated measuring up to 6 mm short axis. Normal appendix. Oral contrast progressed to the mid transverse colon. There is mild stool burden. No pericolic inflammatory change. PELVIS: Bladder urine distended. Uterus surgically absent. Both ovaries are visualized. Mild pelvic free flui d likely physiologic. No abnormal fluid collection in the pelvis otherwise seen and no pelvic lymphad enopathy. BONES: Mild facet arthropathy lower lumbar spine. No osseous process is seen. IMPRESSION: 1. BILATERAL MASTECTOMIES WITH TISSUE EXPANDERS IN PLACE. THERE IS AN AREA OF FLUID ABOVE THE LEFT SI DED TISSUE PHARMACY RETAIL SUPPORT SPECIALIST MEASURING 4.9 X 2.7 X 1.6 CM THAT COULD REPRESENT SOME OF THE TISSUE PHARMACY RETAIL SUPPORT SPECIALIST NINA JOLENE AN ADJACENT SEROMA. NO SIGNIFICANT SURROUNDING INFLAMMATORY CHANGES TO SUGGEST ABSCESS. 2. OTHERWISE, NO EVIDENCE FOR METASTATIC DISEASE TO THE CHEST, ABDOMEN, OR PELVIS.
== END | disposition home or self-care (01) ==
LOC: RADNMMAIN 09:41
PROVIDERS: ATTEND Internal Medicine Hematology & Oncology
DX: Z03.89 Encounter for observation for other suspected diseases and conditions ruled out (principal); C50.211 Malignant neoplasm of upper-inner quadrant of right female breast; Z90.13 Acquired absence of bilateral breasts and nipples
CPT/HCPCS: 82565; 84520; 71260; 74177; 78306; 36415; A9503; Q9967

== ENCOUNTER 2024-04-06 08:22 | Day surgery (SDC) | payer BC ==
[2024-03-31 11:12] VITALS: BMI 28.1
[~2024-04-06 08:22] MED LIST changes: -ACETAMINOPHEN TAB 500 MG TAB PO PRN; -HEPARIN SODIUM,PORCINE/PF 5,000 UNIT/0.5 ML SYRINGE SQ PRN; -Pre Op ABX Message 1 EACH MISC MISCELLANE ONE; +SCOPOLAMINE 1 MG/72 HR PATCH TRANSDERM ONE; +fentaNYL (PF) 50 MCG/ML 2 ML AMP IV PRN
[2024-04-06] MEDS: LACTATED RINGERS 1,000 ML IV SCH (09:07)
[2024-04-06] MEDS: ONDANSETRON 4 MG/2 ML VIAL IVP STA (09:08)
[2024-04-06] MEDS: DEXAMETHASONE SOD PHOSPHATE 4 MG/ML 1 ML VIAL IV ONE (09:08)
[2024-04-06] MEDS: IV FLUID CONTINUATION 1,000 ML IV ONE (09:11)
[2024-04-06] MEDS: FAMOTIDINE 20 MG/2 ML VIAL IV STA (09:12)
[2024-04-06] MEDS ORDERED: MIDAZOLAM 2 MG/2 ML VIAL ONE (09:20)
[2024-04-06] MEDS ORDERED: SUCCINYLCHOLINE CHLORIDE 200 MG/10 ML VIAL IV ONE (09:20)
[2024-04-06] MEDS ORDERED: fentaNYL (PF) 50 MCG/ML 2 ML AMP ONE (09:20)
[2024-04-06] MEDS ORDERED: GLYCOPYRROLATE 0.2 MG/ML 2 ML VIAL ONE (09:20)
[2024-04-06] MEDS ORDERED: ROCURONIUM 10 MG/ML (5 ML VIAL) IV ONE (09:20)
[2024-04-06] MEDS ORDERED: KETOROLAC 30 MG/ML 1 ML VIAL ONE (09:20)
[2024-04-06] MEDS ORDERED: PROPOFOL 10 MG/ML 20 ML VIAL IV ONE (09:20)
[2024-04-06] MEDS ORDERED: NEOSTIGMINE 1 MG/ML 10 ML VIAL ONE (09:20)
[2024-04-06] MEDS ORDERED: LIDOCAINE 1% INJ 10MG/ML (20 ML MDV) ONE (09:20)
[2024-04-06] MEDS ORDERED: HYDROmorphone (PF) 1 MG/ML ONE (09:20)
[2024-04-06] MEDS: LACTATED RINGERS 1,000 ML IV ONE (11:02)
[2024-04-06 11:33] VITALS: TEMP 96.9
[2024-04-06] MEDS: HYDROmorphone 0.5 MG/0.5 ML SYRINGE IVP PRN (11:50)
[2024-04-06 14:04] VITALS: RESP 16
[2024-04-06 14:40] VITALS: BP 140/76; PULSE 85
--- NOTE | 2024-04-06 18:11 | OP ---
OPERATIVE REPORT DATE OF SERVICE : 04/06/2024 PREOPERATIVE DIAGNOSES: 1. Acquired absence, right breast. 2. Personal history of right breast cancer. 3. Acquired deformity, right reconstructed breast. 4. Chronic seroma, right reconstructed breast. 5. Delayed effects of radiation therapy, right reconstructed breast. POSTOPERATIVE DIAGNOSES: 1. Acquired loss, right breast. 2. Personal history of breast cancer, right breast. 3. Acquired deformity, right reconstructed breast. 4. Chronic seroma, right reconstructed breast. 5. Delayed effects of radiation therapy, right reconstructed breast. OPERATIVE PROCEDURES: 1. Insertion of tissue white hat hacker, right breast, for right breast reconstruction. 2. Revision right reconstructed breast with excision of the chronic seroma scar and tissue. OPERATIVE INDICATIONS: The patient is a 53-year-old female, who was diagnosed with cancer of the right breast and elected to proceed with right-sided therapeutic mastectomy, left-sided simple mastectomy with immediate reconstruction via prepectoral tissue white hat hacker technique. The reconstruction was complicated by a delayed seroma, then wound that developed on the right reconstructed breast, and she required removal of the white hat hacker. The patient's treatment protocol also required radiation therapy. After her right reconstructed breast wound healed, she proceeded with radiation therapy. She then remained healed for 6 months and returned for a followup evaluation. Seroma was present. Attempted aspiration multiple times did not resolve the situation. The patient currently desires to proceed with breast reconstruction. Her white hat hacker on the left side has been working as intended. The tissues remain healthy and soft. She desires to proceed with a tissue white hat hacker style reconstruction on the right. She is aware of the potential risks and complications and the added increased risks due to the radiation treatment. These risks include, but not limited to seroma, hematoma, wound healing problems, infections, among others. She has requested to perform the surgery. OPERATIVE PROCEDURE SUMMARY: The patient is seen in the preoperative area, markings made, procedure reviewed. All questions were answered. She is transported to the operative room, where she was placed in supine position. Following induction of general anesthesia, the patient was prepped and draped in the usual fashion. The prior mastectomy scar was identified. In transverse fashion outlined and incision made through the scar, dividing skin and scar in full-thickness fashion. Subcutaneous tissues divided with cautery. Then, dissection was performed, elevating skin and subcutaneous tissue flaps off the underlying seroma fibrous scar wall. This dissection was extensive, required reelevation of the skin and subcutaneous tissue, mastectomy skin flaps. Once the seroma scar was dissected down to the chest wall, the cavity was entered with cautery and all fluid aspirated, and then the seroma cavity was excised off the chest wall. The seroma cavity scar tissue was sent to pathology for permanent evaluation. Hemostasis was maintained with cautery. Irrigation was now performed with pulsatile irrigation unit, several liters of fluid. Excellent hemostasis was obtained. The cavity was sized. After this, a 19-Nadeem channel drain was inserted in the reconstructive cavity and brought out through a separate stab incision in the right anterolateral chest wall and sutured in place with 2-0 Prolene. The tissue white hat hacker was now opened on the field after changing gloves. The tissue white hat hacker was from the [employer] tissue white hat hacker [employer], reference #[id number], serial #[id number]. The device was only handled by the surgeon. All air was extracted and initially 100 mL of 0.9 normal saline instilled. It was placed in for a testing fitting, was optimal. The white hat hacker was now secured to the chest wall at the 6 suture tab locations using interrupted 2-0 Vicryl sutures. Additional 100 mL of 0.9 normal saline instilled into the white hat hacker. The skin and subcutaneous tissue flaps were now closed over the white hat hacker, approximated the deep subcutaneous tissue layer using interrupted inverted 3- 0 Vicryl. Then, approximated the deep dermis using inverted interrupted 4-0 Monocryl, followed by placing sergio. The magnet port identifier was then used to locate the fill port for the white hat hacker, and then the white hat hacker was filled to a volume of 300 mL, which placed an optimal amount of tension on the tissue. The surgical field was now cleansed with saline, dried, postoperative bandages placed using sterile paper tape over closure. The drain sponges were secured with Tegaderm and then Kerlix gauze, secured with 3 Medipore tape in position with size 3 white mammary support. The drain was connected to close bulb suction and patent. The patient is then awakened from her anesthetic and transferred to the recovery area in good condition with stable vital signs. There were no complications. The estimated blood loss was 35 mL. The final fill of the tissue white hat hacker was 300 mL 0.9 normal saline. MMODL / IJN: [id number] /
== END 2024-04-06 15:46 | disposition home or self-care (01) ==
LOC: OR 08:22
PROVIDERS: ATTEND Plastic Surgery
DX: Z85.3 Personal history of malignant neoplasm of breast
CPT/HCPCS: 88305